=== PATIENT | female | born 1955 | race Two or more races ===

== ENCOUNTER 2021-03-26 11:46 | Inpatient (IN) | payer OTHER ==
[~2021-03-26] VITALS: Ht 180.3 cm; Wt 99.9 kg
[~2021-03-26 11:46] MED LIST: ASCO-339 MT; ASCO500C18 MT; DOCU-150 MT; FURO20TA4 PO; NIFE30TA94 MT; SENN-155 PO
[2021-03-26] MEDS ORDERED: PREDNISONE 20MG TABLET PO STA (12:17)
[2021-03-26] MEDS ORDERED: ALBUTEROL (0.083%) 2.5MG/3ML NEB HHN STA (12:17)
[2021-03-26] MEDS ORDERED: IPRATROPIUM BROMIDE (0.02%) 0.5MG/2.5ML NEB HHN STA (12:17)
[2021-03-26 13:21] LABS: BASOPHILS % 0.6 % (0.0-2.0); EOSINOPHILS % 0.3 % (0.0-5.0); HEMATOCRIT. 37.2 % (36.0-48.0); LYMPHOCYTES % 9.6 % (20.0-50.0); MEAN CORPUSCULAR HEMOGLOBIN 25.1 pg (28.0-32.0); MEAN CORPUSCULAR VOLUME 84.7 fL (81.0-99.0); MEAN PLATELET VOLUME 8.3 fl (7.4-10.4); MONOCYTES % 8.3 % (2.0-8.0); NEUTROPHILS % 81.2 % (40.0-76.0); PLATELET 202 x1000/uL (130-400); RED BLOOD CELL COUNT 4.39 mill/uL (4.2-5.4); RED CELL DISTRIBUTION WIDTH 18.8 % (11.6-14.6)
[2021-03-26 13:28] LABS: CHLORIDE 94 mEq/L (98-107)
[2021-03-26] MEDS ORDERED: FUROSEMIDE 40MG/4ML VIAL IVP NR (15:30)
[2021-03-26] MEDS ORDERED: ACETAMINOPHEN 325MG TABLET PO ONE (19:45)
[2021-03-27] VITALS: BP_SYST 168; BP_SYST 169; BP_DIAS 82; BP_DIAS 85
[2021-03-27] MEDS ORDERED: IPRATROPIUM/ALBUTEROL 0.5-3(2.5)MG/3ML NEB HHN PRN (01:15)
[2021-03-27] MEDS ORDERED: ACETAMINOPHEN 325MG TABLET PO PRN (01:15)
[2021-03-27] MEDS: NIFEDIPINE XL 30MG TAB PO SCH ×2 (01:15→08:57)
[2021-03-27] MEDS ORDERED: INFLUENZA VACCINE 05/PF 0.5 ML SYRINGE IM ONE (03:45)
[2021-03-27] MEDS: SILDENAFIL CITRATE 20MG TABLET PO SCH ×3 (05:55→21:15)
[2021-03-27 08:00] VITALS: BP 150/103
[2021-03-27] MEDS: ASPIRIN 81MG TABLET PO SCH (08:56)
[2021-03-27] MEDS: METOPROLOL TARTRATE 50MG TABLET PO SCH ×2 (08:56→17:28)
[2021-03-27] MEDS: ASCORBIC ACID 500 MG TABLET PO SCH (08:56)
[2021-03-27] MEDS: FAMOTIDINE 20MG TABLET PO SCH (08:56)
[2021-03-27] MEDS: LISINOPRIL 40MG TABLET PO SCH (08:56)
[2021-03-27] MEDS: DOCUSATE SODIUM 100MG CAPSULE PO SCH ×3 (08:56→17:30)
[2021-03-27] MEDS: FUROSEMIDE 40MG/4ML VIAL IVP SCH ×2 (08:57→17:00)
[2021-03-27] MEDS ORDERED: ENOXAPARIN 40MG/0.4ML SYR SUBCUT SCH (09:00)
[2021-03-27 12:00] VITALS: BP 125/74
[2021-03-27 15:30] LABS: BASOPHILS % 0.5 % (0.0-2.0); EOSINOPHILS % 0.5 % (0.0-5.0); HEMATOCRIT. 33.4 % (36.0-48.0); LYMPHOCYTES % 16.6 % (20.0-50.0); MEAN CORPUSCULAR VOLUME 83.7 fL (81.0-99.0); MEAN PLATELET VOLUME 8.8 fl (7.4-10.4); MONOCYTES % 12.7 % (2.0-8.0); NEUTROPHILS % 69.7 % (40.0-76.0); PLATELET 222 x1000/uL (130-400); RED BLOOD CELL COUNT 3.99 mill/uL (4.2-5.4); RED CELL DISTRIBUTION WIDTH 18.8 % (11.6-14.6)
[2021-03-27 16:00] VITALS: BP 117/51
[2021-03-27] MEDS: ENOXAPARIN 30MG/0.3ML SYR SUBCUT SCH (17:29)
[2021-03-27 20:00] VITALS: BP 133/71
[2021-03-28] MEDS: ENOXAPARIN 30MG/0.3ML SYR SUBCUT SCH ×2 (06:24→18:00)
[2021-03-28] MEDS: SILDENAFIL CITRATE 20MG TABLET PO SCH ×3 (06:24→22:00)
[2021-03-28 08:00] VITALS: BP 139/105
[2021-03-28] MEDS: FUROSEMIDE 40MG/4ML VIAL IVP SCH ×3 (09:00→17:00)
[2021-03-28] MEDS: FAMOTIDINE 20MG TABLET PO SCH (09:52)
[2021-03-28] MEDS: NIFEDIPINE XL 30MG TAB PO SCH (09:52)
[2021-03-28] MEDS: DOCUSATE SODIUM 100MG CAPSULE PO SCH ×2 (09:52→18:49)
[2021-03-28] MEDS: LISINOPRIL 40MG TABLET PO SCH (09:53)
[2021-03-28] MEDS: ASCORBIC ACID 500 MG TABLET PO SCH (09:53)
[2021-03-28] MEDS: ASPIRIN 81MG TABLET PO SCH (09:53)
[2021-03-28] MEDS: METOPROLOL TARTRATE 50MG TABLET PO SCH ×2 (09:53→18:49)
[2021-03-28 12:00] VITALS: BP 117/63
[2021-03-28] MEDS ORDERED: FUROSEMIDE 40MG/4ML VIAL IVP NR (14:15)
[2021-03-28 16:00] VITALS: BP 98/52
[2021-03-28 21:31] VITALS: BP 108/67
[2021-03-29] VITALS: BP 107/55
[2021-03-29 04:00] VITALS: BP 130/50
[2021-03-29] MEDS: SILDENAFIL CITRATE 20MG TABLET PO SCH ×3 (06:24→21:57)
[2021-03-29] MEDS: ENOXAPARIN 30MG/0.3ML SYR SUBCUT SCH ×2 (06:25→18:00)
[2021-03-29 08:00] VITALS: BP 101/56
[2021-03-29] MEDS: DOCUSATE SODIUM 100MG CAPSULE PO SCH ×2 (08:57→17:00)
[2021-03-29] MEDS: ASCORBIC ACID 500 MG TABLET PO SCH (08:57)
[2021-03-29] MEDS: ASPIRIN 81MG TABLET PO SCH (08:57)
[2021-03-29] MEDS: FUROSEMIDE 40MG/4ML VIAL IVP SCH ×2 (08:57→17:00)
[2021-03-29] MEDS: FAMOTIDINE 20MG TABLET PO SCH (08:58)
[2021-03-29] MEDS: LISINOPRIL 40MG TABLET PO SCH (08:59)
[2021-03-29] MEDS: METOPROLOL TARTRATE 50MG TABLET PO SCH ×2 (09:00→17:00)
[2021-03-29] MEDS: NIFEDIPINE XL 30MG TAB PO SCH (09:00)
[2021-03-29 12:00] VITALS: BP 111/58
[2021-03-29 16:00] VITALS: BP 126/50
[2021-03-29 20:00] VITALS: BP 144/69
[2021-03-30] VITALS (7 sets, daily range): BP systolic 119–145; BP diastolic 40–80
[2021-03-30] MEDS: ENOXAPARIN 30MG/0.3ML SYR SUBCUT SCH ×2 (06:00→16:57)
[2021-03-30] MEDS: FUROSEMIDE 40MG/4ML VIAL IVP SCH ×2 (09:00→16:34)
[2021-03-30] MEDS: METOPROLOL TARTRATE 50MG TABLET PO SCH ×2 (09:18→16:57)
[2021-03-30] MEDS: NIFEDIPINE XL 30MG TAB PO SCH (09:18)
[2021-03-30] MEDS: ASCORBIC ACID 500 MG TABLET PO SCH (09:18)
[2021-03-30] MEDS: FAMOTIDINE 20MG TABLET PO SCH (09:18)
[2021-03-30] MEDS: ASPIRIN 81MG TABLET PO SCH (09:18)
[2021-03-30] MEDS: LISINOPRIL 40MG TABLET PO SCH (09:18)
[2021-03-30] MEDS: DOCUSATE SODIUM 100MG CAPSULE PO SCH ×2 (09:18→16:34)
[2021-03-30] MEDS: SILDENAFIL CITRATE 20MG TABLET PO SCH (14:00)
== END 2021-03-30 21:36 | DRG 194 ==
LOC: ER 11:53 → 7EST 17:48 → ENRESERV 21:58
PROVIDERS: ADMIT Internal Medicine; ATTEND Internal Medicine
DX: I11.0 Hypertensive heart disease with heart failure (principal); J96.21 Acute and chronic respiratory failure with hypoxia; E43 Unspecified severe protein-calorie malnutrition; I50.33 Acute on chronic diastolic (congestive) heart failure; I27.20 Pulmonary hypertension, unspecified; J44.9 Chronic obstructive pulmonary disease, unspecified; E87.8 Other disorders of electrolyte and fluid balance, not elsewhere classified; E66.9 Obesity, unspecified; D64.9 Anemia, unspecified; Z20.822 Contact with and (suspected) exposure to COVID-19; Z71.3 Dietary counseling and surveillance; Z68.30 Body mass index [BMI] 30.0-30.9, adult
CPT/HCPCS: 36415; 71045; 80048; 80053; 83880; 84145; 84484; 85025; 87426; 90686; 93005; 94640; 97161; 99285; J1650; J1940; J7512